=== PATIENT | male | born 1955 | race Two or more races ===

== ENCOUNTER 2019-09-23 21:30 | Emergency (ER) | payer OTHER ==
[~2019-09-23] VITALS: Ht 177.8 cm; Wt 77.1 kg
--- NOTE | 2019-09-23 21:37 | NUR ---
[id number] FROM HOME S/P WITNESSED SYNCOPAL EPISODE BY , +DIZZY, +LOC, DENIES HEAD TRAUMA, pt awake, -sob, nad noted, vss, pending md nicole
[2019-09-23 22:28] LABS: BASOPHILS # (AUTO) 0.1 /CMM (0.0-0.2); BASOPHILS % (AUTO) 0.7 % (0.0-2.0); EOSINOPHILS % (AUTO) 1.2 % (0.0-6.0); HEMATOCRIT 47 % (39-51); HEMOGLOBIN 15.9 g/dL (13.5-17.5); LYMPHOCYTES # (AUTO) 2.6 /CMM (0.8-4.8); LYMPHOCYTES % (AUTO) 20.1 % (20.0-44.0); MEAN CORPUSCULAR HGB CONC 34 g/dl (31.0-36.0); MEAN CORPUSCULAR VOLUME 85 fL (80-96); MONOCYTES # (AUTO) 0.7 /CMM (0.1-1.30); MONOCYTES % (AUTO) 5.1 % (2.0-12.0); NEUTROPHILS # (AUTO) 9.4 /CMM (1.8-8.9); NEUTROPHILS % (AUTO) 72.9 % (43.0-81.0); PLATELET COUNT (AUTO) 263 /CMM (150-450); RED BLOOD CELL COUNT(AUTO) 5.55 MIL/uL (4.5-6.0); WHITE BLOOD COUNT (AUTO) 12.8 K/uL (4.3-11.0)
[2019-09-23] MEDS ORDERED: IV NS 0.9% 1,000 ML BAG IV ONE (22:30)
[2019-09-23] MEDS ORDERED: ACETAMINOPHEN ES 500 MG TABLET PO ONE (22:30)
[2019-09-23] MEDS ORDERED: ACETAMINOPHEN ES 500 MG TABLET ONE (22:32)
[2019-09-23 22:35] LABS: CALCIUM, SERUM 9.3 mg/dL (8.5-10.1); CARBON DIOXIDE 23 mmol/L (21-32); CHLORIDE 101 mmol/L (98-107); GLUCOSE 148 mg/dL (74-106); POTASSIUM 3.4 mmol/L (3.5-5.1); SODIUM SERUM 138 mmol/L (136-145); UREA NITROGEN, BLOOD 15 mg/dL (7-18)
[2019-09-23 22:41] LABS: ALANINE AMINOTRANSFERASE 19 U/L (12-78); ALBUMIN 3.9 g/dL (3.4-5.0); ALKALINE PHOSPHATASE 78 U/L (46-116); ASPARTATE AMINOTRANSFERASE 13 U/L (15-37); BILIRUBIN,DIRECT 0.1 mg/dL (0.0-0.2); BILIRUBIN,TOTAL 0.3 mg/dL (0.2-1.0); TOTAL PROTEIN, SERUM 7.7 g/dL (6.4-8.2)
[2019-09-23] MEDS ORDERED: IOHEXOL-300 100 ML VIAL IV ONE (23:24)
[2019-09-23] MEDS ORDERED: IV NS 0.9% 250 ML IV ONE (23:24)
[2019-09-23] MEDS ORDERED: CT SWABBABLE VALVE TRANS SET 1 EA INFUS.SET MC ONE (23:24)
--- NOTE | 2019-09-23 23:30 | NUR ---
spoke to cm for clinicals
[2019-09-23 23:59] LABS: APPEARANCE,URINE Clear (CLEAR); BILIRUBIN,URINE Negative (NEGATIVE); BLOOD, URINE Negative Ery/uL (NEGATIVE); COLOR,URINE Yellow (YELLOW); KETONES,URINE Trace (NEGATIVE); LEUKOCYTE ESTERASE ,URINE Negative (NEGATIVE); NITRITE, URINE Negative (NEGATIVE); PROTEIN,URINE 100 mg/dl (NEGATIVE); UGLUCOSE Negative (NEGATIVE); UROBILINOGEN,URINE 0.2 EU/dL (0.2)
[2019-09-24 00:26] LABS: BACTERIA,URINE None seen /HPF (None Seen); RBC,URINE 0-2 /HPF (0-2); SQUAMOUS EPITHELIAL CELL,UR Few /HPF (None Seen); WBC,URINE 0-2 /HPF (0-3)
--- NOTE | 2019-09-24 01:38 | NUR ---
f/u, no bed available yet at [facility]
--- NOTE | 2019-09-24 01:48 | NUR ---
Patient is resting comfortably in bed with eyes closed. Easily aroused. VSS
--- NOTE | 2019-09-24 03:54 | NUR ---
PT ACCEPTED TO [facility] BY DR ZARAGOZA .BED 1242-2. # FOR REPORT [phone]
--- NOTE | 2019-09-24 04:12 | NUR ---
REPORT CALLED TO RALPH STEPHEN RN QUE. AWAITING TRANSPORT.
--- NOTE | 2019-09-24 05:14 | NUR ---
[facility] ETA [id number].
[2019-09-24 07:46] VITALS: BP 128/71
--- NOTE | 2019-09-24 07:47 | NUR ---
patient picked up by a private ambulance going to [facility], in no distress accompanied by 2 emt.
== END 2019-09-24 07:47 | disposition short-term general hospital (02) ==
LOC: ER 21:31
DX: R55 Syncope and collapse (principal); R07.89 Other chest pain; K21.9 Gastro-esophageal reflux disease without esophagitis; I10 Essential (primary) hypertension
CPT/HCPCS: 36415 ×2; 70450; 71045; 71260; 74177; 80048; 80076; 81001; 83605 ×2; 84145; 84484; 85025; 85730; 87040 ×2; 87086; 93005; 96360; 99285; J7050; Q9967; 81000-TC

== ENCOUNTER 2020-08-26 08:42 | Emergency (ER) | payer OTHER ==
[~2020-08-26] VITALS: Ht 175.3 cm; Wt 81.6 kg
[2020-08-26 09:18] LABS: BASOPHILS # (AUTO) 0.2 /CMM (0.0-0.2); BASOPHILS % (AUTO) 2.3 % (0.0-2.0); EOSINOPHILS % (AUTO) 0.2 % (0.0-6.0); HEMATOCRIT 48 % (39-51); HEMOGLOBIN 16.2 g/dL (13.5-17.5); LYMPHOCYTES # (AUTO) 1.2 /CMM (0.8-4.8); LYMPHOCYTES % (AUTO) 14.2 % (20.0-44.0); MEAN CORPUSCULAR HGB CONC 34 g/dl (31.0-36.0); MEAN CORPUSCULAR VOLUME 85 fL (80-96); MONOCYTES # (AUTO) 0.4 /CMM (0.1-1.30); MONOCYTES % (AUTO) 4.8 % (2.0-12.0); NEUTROPHILS # (AUTO) 6.9 /CMM (1.8-8.9); NEUTROPHILS % (AUTO) 78.5 % (43.0-81.0); PLATELET COUNT (AUTO) 280 /CMM (150-450); WHITE BLOOD COUNT (AUTO) 8.8 K/uL (4.3-11.0)
--- NOTE | 2020-08-26 09:20 | NUR ---
Patient came in to the er c/o urinary retention since yesterday. On room air breathing evenly and unlabored. Connected to the monitor and pulse ox. Kept comfortable, will continue to monitor accordingly. Hagen cath inserted with 900ml of urine output. Urine collected and sent to lab, IV access initiated and blood drawned and sent to lab.
[2020-08-26 09:24] LABS: BILIRUBIN,URINE Negative (NEGATIVE); COLOR,URINE YELLOW (YELLOW); LEUKOCYTE ESTERASE ,URINE Negative (NEGATIVE); NITRITE, URINE Negative (NEGATIVE); PROTEIN,URINE Negative (NEGATIVE); UGLUCOSE Negative (NEGATIVE); UROBILINOGEN,URINE 0.2 EU/dL (0.2)
[2020-08-26 09:27] LABS: CALCIUM, SERUM 9.4 mg/dL (8.5-10.1); POTASSIUM 3.8 mmol/L (3.5-5.1)
[2020-08-26 09:31] LABS: ALBUMIN 4.1 g/dL (3.4-5.0); BILIRUBIN,DIRECT 0.1 mg/dL (0.0-0.2); BILIRUBIN,TOTAL 0.6 mg/dL (0.2-1.0); TOTAL PROTEIN, SERUM 8.8 g/dL (6.4-8.2)
[2020-08-26 09:58] VITALS: BP 168/88
--- NOTE | 2020-08-26 09:58 | NUR ---
Patient discharged to home in stable condition. Written and verbal after care instructions given. Patient verbalizes understanding of instruction. IV removed. Catheter intact and site benign. Pressure and 4x4 applied to site. No bleeding noted.
[2020-08-29] MEDS ORDERED: FINA5TAB11 PO (13:34)
[2020-08-29] MEDS ORDERED: LOSA50TA39 PO (13:34)
[2020-08-29] MEDS ORDERED: TAMS-12 PO (13:34)
[2020-08-29] MEDS ORDERED: CHOL200010 PO (13:34)
[2020-08-29] MEDS ORDERED: DICL75TA5 PO (13:34)
[2020-08-29] MEDS ORDERED: LOVA40TA2 PO (13:34)
[2020-08-29] MEDS ORDERED: OMEP40CA13 PO (13:34)
[2020-08-29] MEDS ORDERED: HYDR12.55 PO (13:34)
== END 2020-08-26 09:58 | disposition home or self-care (01) ==
LOC: ER 08:49
DX: R33.9 Retention of urine, unspecified (principal); N40.0 Benign prostatic hyperplasia without lower urinary tract symptoms; I10 Essential (primary) hypertension; K21.9 Gastro-esophageal reflux disease without esophagitis
CPT/HCPCS: 36415; 80048-TC; 80076-TC; 83690-TC; 85025-TC

== ENCOUNTER → 2020-08-29 | Emergency (ER) | payer OTHER ==
[~2020-08-29] VITALS: Ht 172.7 cm; Wt 89.8 kg
[~2020-08-29] MED LIST: CHOL200010 PO; DICL75TA5 PO; FINA5TAB11 PO; HYDR12.55 PO; LIDOCAINE 2% JEL UROJET 10 ML MM ONE; LOSA50TA39 PO; LOVA40TA2 PO; OMEP40CA13 PO; TAMS-12 PO
[2020-08-29 13:15] VITALS: BP 123/94
== END | disposition home or self-care (01) ==
LOC: ER 14:39
DX: T83.028A Displacement of other urinary catheter, initial encounter (principal); R33.9 Retention of urine, unspecified; I10 Essential (primary) hypertension; K21.9 Gastro-esophageal reflux disease without esophagitis; Z79.899 Other long term (current) drug therapy
CPT/HCPCS: 99281; J3490